=== PATIENT | male | born 1940 | race Caucasian/White ===

== ENCOUNTER 2017-11-14 19:32 | Emergency (ER) | payer OTHER, MEDICARE ==
[~2017-11-14] VITALS: Ht 175.3 cm; Wt 82.6 kg
[2017-11-14 20:15] LABS: ALBUMIN 4.5 g/dL (3.2-4.8); CHLORIDE 107 mEq/L (99-109); POTASSIUM 3.6 mEq/L (3.7-5.4); SODIUM 142 mEq/L (136-147)
[2017-11-14 20:18] LABS: GLUCOSE 101 mg/dL (70-99); TOTAL PROTEIN 7.8 g/dL (6.4-8.3)
[2017-11-14 20:20] LABS: HEMATOCRIT 50.8 % (38.0-50.0); HEMOGLOBIN 18.6 G/DL (12.5-16.6); MCH 32.2 PG (29.0-34.0); MCHC 36.6 G/DL (30.0-36.0); MCV 87.9 FL (86-99); PLATELET COUNT 279 K/uL (156-360); RBC DIS.WIDTH-CV 14.4 % (11.8-14.6); RBC DIS.WIDTH-SD 46.2 % (39-53); RED BLOOD COUNT 5.78 M/uL (4.00-5.50); TOTAL BILIRUBIN 1.2 mg/dL (0.0-1.0); WHITE BLOOD COUNT 9.7 K/uL (4.1-10.2)
[2017-11-14 20:21] LABS: ALKALINE PHOSPHATASE 109 IU/L (3-129); GFR ESTIMATE (CALCULATED) > 59 mL/min/ (58.99-99999)
[2017-11-14 20:23] LABS: AST (GOT) 22 IU/L (2-34); UREA NITROGEN (BUN) 17 mg/dL (9-23)
[2017-11-14 20:24] LABS: ALT (GPT) 19 IU/L (3-49)
[2017-11-14 20:38] LABS: LIPASE 19 U/L (1.0-51.0)
[2017-11-14 20:43] LABS: TROP-I INTERPRETATION NEGATIVE; TROPONIN-I < 0.01 ng/mL (0.0-0.30)
[2017-11-14 22:10] LABS: APPEARANCE CLEAR ((CLEAR)); BILIRUBIN NEGATIVE; BLOOD NEGATIVE; COLOR YELLOW ((YELLOW)); GLUCOSE (STRIP) NEGATIVE; KETONES 20; LEUKOCYTES NEGATIVE; NITRITE NEGATIVE; PROTEIN (STRIP) NEGATIVE; SPECIFIC GRAVITY 1.036 (1.000-1.030); UCUL ADDED? NO; UROBILINOGEN 0.2 MG/DL (0.2-1.0)
[2017-11-14] MEDS ORDERED: ZOFRAN4 MG PO (23:04)
[2017-11-14 23:12] VITALS: BP 150/103
== END 2017-11-14 23:12 | disposition home or self-care (01) ==
LOC: EME 19:32
PROVIDERS: Emergency Medicine
DX: R10.10 Upper abdominal pain, unspecified (principal); K44.9 Diaphragmatic hernia without obstruction or gangrene; K80.20 Calculus of gallbladder without cholecystitis without obstruction; K57.30 Diverticulosis of large intestine without perforation or abscess without bleeding; I25.10 Atherosclerotic heart disease of native coronary artery without angina pectoris; I48.91 Unspecified atrial fibrillation; I44.4 Left anterior fascicular block; R94.31 Abnormal electrocardiogram [ECG] [EKG]; I10 Essential (primary) hypertension; K21.9 Gastro-esophageal reflux disease without esophagitis; Z86.79 Personal history of other diseases of the circulatory system; Z88.8 Allergy status to other drugs, medicaments and biological substances
CPT/HCPCS: 74177; 80053; 81003; 83690; 84484; 85027; 93005; 99281; 99284; J2405; J7120

== ENCOUNTER 2017-11-26 07:58 | Day surgery (SDC) | payer OTHER, MEDICARE ==
[~2017-11-26] VITALS: Ht 175.3 cm; Wt 82.0 kg
[~2017-11-26 07:58] MED LIST: AMLODIPINE BESY10 MG PO; ASPIRIN81 M2 PO; CENTRUM SILVER1 EAC3 PO; ELIQUIS5 MG PO; LASIX20 MG PO; LIPITOR40 MG PO; LOSARTAN POTAS100 MG PO; LYRICA75 MG PO; MOBIC15 MG PO; OS-CAL 500+D T1 EAC1 PO; PRILOSEC20 MG PO; TRAMADOL HCL50 MG PO; ZOFRAN4 MG PO
== END 2017-11-26 10:30 | disposition home or self-care (01) ==
LOC: CATH 07:58
DX: I48.0 Paroxysmal atrial fibrillation (principal); I34.0 Nonrheumatic mitral (valve) insufficiency; Z79.01 Long term (current) use of anticoagulants; E78.5 Hyperlipidemia, unspecified; I10 Essential (primary) hypertension; I25.10 Atherosclerotic heart disease of native coronary artery without angina pectoris; I71.4 Abdominal aortic aneurysm, without rupture; G47.30 Sleep apnea, unspecified; Z82.49 Family history of ischemic heart disease and other diseases of the circulatory system
CPT/HCPCS: 93005; 93312; 93320; 93325

== ENCOUNTER → 2017-12-17 | Outpatient (CLI) | payer OTHER, MEDICARE ==
[~2017-12-17] MED LIST changes: +AMIODARONE HCL200 MG PO
== END | disposition home or self-care (01) ==
LOC: NUC 08:30
DX: I48.91 Unspecified atrial fibrillation (principal)
CPT/HCPCS: 78452; 93017; A9500; J2785

== ENCOUNTER 2017-12-31 08:23 | Day surgery (SDC) | payer OTHER, MEDICARE ==
[~2017-12-31] VITALS: Ht 176.5 cm; Wt 84.0 kg
== END 2017-12-31 10:33 | disposition home or self-care (01) ==
LOC: CATH 08:23
PROC: 5A2204Z Restoration of Cardiac Rhythm, Single (ICD-10-PCS; principal; 2017-12-31)
DX: I48.0 Paroxysmal atrial fibrillation (principal); I10 Essential (primary) hypertension; E78.5 Hyperlipidemia, unspecified; I25.10 Atherosclerotic heart disease of native coronary artery without angina pectoris; K21.9 Gastro-esophageal reflux disease without esophagitis; I44.0 Atrioventricular block, first degree; Z79.82 Long term (current) use of aspirin; Z79.01 Long term (current) use of anticoagulants
CPT/HCPCS: 93005; J0461